=== PATIENT | female | born 1940 | race Caucasian/White ===

== ENCOUNTER 2024-01-24 10:54 | Observation (INO) | payer MEDICARE ==
[~2024-01-24] VITALS: Ht 165.1 cm; Wt 72.3 kg
[2024-01-24 11:18] LABS: BASOPHILS # (AUTO) 0.05 K/uL (0.00-0.20); BASOPHILS % (AUTO) 0.5 % (0.0-5.0); EOSINOPHILS # (AUTO) 0.04 K/uL (0.00-0.70); EOSINOPHILS % (AUTO) 0.4 % (0.0-8.0); HEMATOCRIT 40.8 % (36-48); IMMATURE GRANULOCYTE ABSOLUTE 0.04 K/uL (0-1); LYMPHOCYTES % (AUTO) 10.2 % (21.0-51.0); MEAN CORPUSCULAR HGB CONC 34.1 g/dL (32.0-36.0); MEAN CORPUSCULAR VOLUME 91.1 fL (79-99); MONOCYTES # (AUTO) 0.9 K/uL (0.1-1.0); MONOCYTES % (AUTO) 8.9 % (3.0-13.0); NEUTROPHILS % (AUTO) 79.6 % (40.0-77.0); PLATELET COUNT (AUTO) 264 K/uL (130-400); RED BLOOD CELL COUNT(AUTO) 4.48 MIL/uL (4.00-5.50); RED CELL DISTRIBUTION WIDTH 12.5 % (11.0-15.5); WHITE BLOOD COUNT (AUTO) 10.1 K/uL (4.8-10.8)
[2024-01-24 11:23] LABS: ALBUMIN 3.9 g/dL (3.5-5.0); BILIRUBIN,TOTAL 0.8 mg/dL (0.2-1.0); CREATININE 1.4 mg/dL (0.5-1.0); POTASSIUM 3.9 mmol/L (3.5-5.1); TOTAL PROTEIN, SERUM 7.4 g/dL (6.0-8.3)
[2024-01-24] MEDS: 0.9%NACL 1000ML 1,000 ML IV ONE (14:58)
[2024-01-24] MEDS: TETANUS/DIPHTHERIA TOXOID [ADULT] 0.5 ML VIAL IM ONE (15:00)
[2024-01-24 15:17] LABS: INR 1.04 (0.85-1.15); PROTHROMBIN TIME 11.2 SEC (9.6-11.6)
[2024-01-24 15:18] LABS: PARTIAL THROMBOPLASTIN TIME 28.1 SEC (26.3-35.5)
[2024-01-24 15:19] LABS: HEMOGLOBIN A1C 5.8 % (4.0-6.0)
[2024-01-24] MEDS ORDERED: acetaMINOPHEN 325 MG TAB PO PRN (15:30)
[2024-01-24] MEDS ORDERED: MORPHINE 2 MG SYG IVP PRN (15:30)
[2024-01-24] MEDS: 0.9%NACL 1000ML 1,000 ML IV SCH (15:31)
[2024-01-24] MEDS: KCL 20 MEQ ERTAB PO ONE (15:31)
[2024-01-24] MEDS: MAGNESIUM 2GM PREMIX 50ML 50 ML IV SCH (15:31)
[2024-01-24] MEDS: PANTOPRAZOLE 40 MG TAB DR PO SCH (15:31)
[2024-01-24 15:33] LABS: THYROID STIMULATING HORMONE 1.05 uIU/mL (0.36-3.74)
[2024-01-24 15:36] LABS: APPEARANCE,URINE TURBID (CLEAR); BILIRUBIN,URINE NEGATIVE (NEGATIVE); COLOR,URINE YELLOW (YELLOW); GLUCOSE, URINE (UA) NEGATIVE (NEGATIVE); KETONES,URINE NEGATIVE (NEGATIVE); LEUKOCYTE ESTERASE ,URINE 500 Leu/uL (NEGATIVE); NITRATE,URINE NEGATIVE (NEGATIVE); OCCULT BLOOD,URINE SMALL (NEGATIVE); PROTEIN,URINE 70 mg/dL (NEGATIVE); UROBILINOGEN,URINE 0.2 mg/dL (0.2-1.0)
[2024-01-24 15:40] LABS: ADD UA MICROSCOPIC YES
[2024-01-24 15:43] LABS: BACTERIA,URINE FEW /HPF (None Seen); OTHER CASTS, URINE 5 /LPF (None Seen); SQUAMOUS EPITHELIAL CELL,UR RARE /HPF (0-2); UNCLASSIFIED CRYSTAL 5 /HPF (None Seen); WBC CLUMP FEW /HPF (0-1); WBC,URINE 51-100 /HPF (0-1); YEAST,URINE BUDDING FEW /HPF (None Seen)
[2024-01-24 15:49] LABS: SARS-CoV-2, RNA, NAAT NEGATIVE SARS CoV-2 (NEGATIVE)
[2024-01-24 16:00] LABS: INFLUENZA TYPE A Negative For Type A (NEGATIVE); INFLUENZA TYPE B Negative For Type B (NEGATIVE)
[2024-01-24] MEDS: CEFTRIAXONE 2GM VIAL IVPB SCH (16:14)
[2024-01-24 17:45] VITALS: BP 178/88; PULSE 77; RESP 20
[2024-01-24] MEDS ORDERED: LABETALOL 20MG SYG IV PRN (19:00)
[2024-01-24 19:11] VITALS: O2SAT 96
[2024-01-24 19:40] VITALS: BP 137/71; PULSE 78; RESP 18
[2024-01-24 23:49] VITALS: BP 147/76; PULSE 80; RESP 18
[2024-01-25] VITALS (7 sets, daily range): BP systolic 135–171; BP diastolic 74–88; PULSE 75–86; RESP 16–18; O2SAT 99
[2024-01-25 03:50] LABS: ALBUMIN 3.1 g/dL (3.5-5.0); BILIRUBIN,TOTAL 0.6 mg/dL (0.2-1.0); CREATININE 1.3 mg/dL (0.5-1.0); POTASSIUM 3.4 mmol/L (3.5-5.1); TOTAL PROTEIN, SERUM 6.1 g/dL (6.0-8.3)
[2024-01-25 03:55] LABS: BASOPHILS # (AUTO) 0.03 K/uL (0.00-0.20); BASOPHILS % (AUTO) 0.3 % (0.0-5.0); EOSINOPHILS # (AUTO) 0.14 K/uL (0.00-0.70); EOSINOPHILS % (AUTO) 1.6 % (0.0-8.0); HEMATOCRIT 35.4 % (36-48); IMMATURE GRANULOCYTE ABSOLUTE 0.04 K/uL (0-1); LYMPHOCYTES % (AUTO) 11.6 % (21.0-51.0); MEAN CORPUSCULAR HEMOGLOBIN 31.3 pg (27.0-33.0); MEAN CORPUSCULAR HGB CONC 34.2 g/dL (32.0-36.0); MEAN CORPUSCULAR VOLUME 91.5 fL (79-99); MONOCYTES # (AUTO) 0.8 K/uL (0.1-1.0); MONOCYTES % (AUTO) 9.4 % (3.0-13.0); NEUTROPHILS # (AUTO) 6.8 K/uL (1.8-7.7); NEUTROPHILS % (AUTO) 76.6 % (40.0-77.0); PLATELET COUNT (AUTO) 208 K/uL (130-400); RED BLOOD CELL COUNT(AUTO) 3.87 MIL/uL (4.00-5.50); RED CELL DISTRIBUTION WIDTH 12.4 % (11.0-15.5); WHITE BLOOD COUNT (AUTO) 8.8 K/uL (4.8-10.8)
[2024-01-25] MEDS ORDERED: KCL 20 MEQ ERTAB PO PRN (10:30)
[2024-01-25] MEDS ORDERED: POTASSIUM CHLORIDE 10% ELIXIR 20 MEQ/15 ML UDCUP PO PRN (10:30)
[2024-01-25] MEDS ORDERED: POTASSIUM CHLORIDE 20MEQ/100ML 100 ML IV PRN (10:30)
[2024-01-25] MEDS: amLODIPine 5 MG TAB PO SCH (10:59)
[2024-01-25] MEDS ORDERED: AMLO5TAB4 PO (14:35)
[2024-01-25] MEDS ORDERED: APIX2.5T PO (14:35)
[2024-01-25] MEDS ORDERED: CEFD300C3 PO (14:35)
== END 2024-01-25 15:43 | disposition home or self-care (01) ==
LOC: EDH 10:54 → INTOOBSV 14:59 → EDHIP 14:59 → 2AH 17:17
PROVIDERS: ADMIT Internal Medicine; ATTEND Internal Medicine
DX: S05.11XA Contusion of eyeball and orbital tissues, right eye, initial encounter (principal); Z20.822 Contact with and (suspected) exposure to COVID-19; S01.111A Laceration without foreign body of right eyelid and periocular area, initial encounter; I49.3 Ventricular premature depolarization; R55 Syncope and collapse; I12.9 Hypertensive chronic kidney disease with stage 1 through stage 4 chronic kidney disease, or unspecified chronic kidney disease; N18.9 Chronic kidney disease, unspecified; R60.0 Localized edema; I82.431 Acute embolism and thrombosis of right popliteal vein; Z86.2 Personal history of diseases of the blood and blood-forming organs and certain disorders involving the immune mechanism; Z79.899 Other long term (current) drug therapy; Z85.828 Personal history of other malignant neoplasm of skin; Z96.651 Presence of right artificial knee joint; W18.30XA Fall on same level, unspecified, initial encounter; Y93.89 Activity, other specified; Y92.89 Other specified places as the place of occurrence of the external cause; Y99.8 Other external cause status
CPT/HCPCS: 96365; 96366; 96368; 99285; 83036; 84443; 82550; 83735 ×2; 84484; 80053 ×2; 85025 ×2; 85610; 85730; 87086 ×2; 87186; 87804 ×2; 86140; 81001; 36415 ×2; 87635; 90714; 71045; 73502; 70450; 72125; 70486; 93970; 93880; 90471; 93005; 84145; 96361; 93306; 93356; 97161; 97116; G0378; J3475; J7030; J0696; G8980-CJ; G8983-CI